=== PATIENT | male | born 1990 | race African-American/Black ===

== ENCOUNTER 2022-12-11 03:57 | Emergency (ER) | payer OTHER ==
[~2022-12-11] VITALS: Ht 172.7 cm; Wt 74.8 kg
--- NOTE | 2022-12-11 03:58 | NUR ---
Dr. Shrestha at bedside for MSE.
[2022-12-11 04:28] LABS: MEAN CORPUSCULAR HEMOGLOBIN 30.5 uug (23.8-33.4); MEAN CORPUSCULAR VOLUME 89.8 fL (73.0-96.2); PLATELET COUNT (AUTO) 115 K/uL (152-348)
[2022-12-11 04:32] LABS: *BILIRUBIN,URIN NEGATIVE (NEGATIVE); *BLOOD, URINE NEGATIVE (NEGATIVE); *CLARITY,URINE CLEAR (CLEAR); *COLOR,URINE YELLOW (YELLOW); *KETONES,URINE 1+ (NEGATIVE); LEUKOCYTE ESTERASE ,URINE NEGATIVE (NEGATIVE); NITRITE, URINE NEGATIVE (NEGATIVE); UGLUCOSE NEGATIVE (NEGATIVE)
[2022-12-11 04:35] LABS: CARBON DIOXIDE 26 mmol/L (21-32); CHLORIDE 103 mmol/L (98-107); CREATININE 1.2 mg/dL (0.6-1.3); GLUCOSE 88 mg/dL (74-106); POTASSIUM 3.6 mmol/L (3.5-5.1); UREA NITROGEN, BLOOD 15 mg/dL (7-18)
[2022-12-11 04:40] LABS: *AMPHETAMINE, URINE NEGATIVE (NEGATIVE); *CANNABINOID, URINE POSITIVE (NEGATIVE); *COCCAINE, URINE NEGATIVE (NEGATIVE); *PHENCYCLIDINE SCREEN,URINE NEGATIVE (NEGATIVE)
[2022-12-11 04:53] LABS: ALANINE AMINOTRANSFERASE 29 U/L (16-63); ALKALINE PHOSPHATASE 91 U/L (50-136); ASPARTATE AMINOTRANSFERASE 14 U/L (15-37); BILIRUBIN,DIRECT 0.1 mg/dL (0.0-0.2); BILIRUBIN,TOTAL 0.4 mg/dL (0.2-1.0); TOTAL PROTEIN, SERUM 7.9 g/dL (6.4-8.2)
[2022-12-11 05:06] LABS: ACETAMINOPHEN < 10.0 ug/mL (10-30)
[2022-12-11 05:08] LABS: ETHANOL < 3 MG/DL (0-0)
[2022-12-11 05:31] LABS: BACTERIA,URINE NONE SEEN /HPF (NONE SEEN); RBC,URINE NONE SEEN /HPF (0-3); SQUAMOUS EPITHELIAL CELL,UR FEW /HPF (NONE SEEN); WBC,URINE NONE SEEN /HPF (0-3)
--- NOTE | 2022-12-11 05:35 | NUR ---
Released pt from four point restraints, pt spoke with , wants to go home to his , took bus home.
--- NOTE | 2022-12-11 06:08 | NUR ---
Pt eloped from ER, but was awaiting discharge instructions. aware.
== END 2022-12-11 06:12 | disposition left against medical advice (07) ==
LOC: ER 03:57
DX: R41.82 Altered mental status, unspecified (principal); R07.89 Other chest pain
CPT/HCPCS: 36415; 84484; 85025; 93005; A4663; C1758; G0480